=== PATIENT | male | born 1985 | race Caucasian/White ===

== ENCOUNTER 2016-08-25 17:16 | Emergency (ER) | payer OTHER ==
[~2016-08-25] VITALS: Ht 180.3 cm; Wt 88.5 kg
[~2016-08-25 17:16] MED LIST: ACETAMINOPHEN-1 EAC1 PO; ADDERALL XR 3030 MG PO; BACTRIM DS TAB1 EACH PO; BENTYL 10 MG CA10 M1 PO; CARAFATE 1 GM TA1 G1 PO; CITRATE OF MAG296 ML PO; CLEOCIN HCL300 MG PO; COLCHICINE0.6 MG PO; CYMBALTA60 MG PO; ELIMITE60 GM TP; GABAPENTIN 100100 MG PO; HYDROCODONE-AP1 EAC6 PO; HYDROCODONE-APA1 TA1 PO; HYDROCODONE-IB1 EACH PO; HYDROCODONE-IBU1 TAB PO; IBUPROFEN 600600 M1 PO; IBUPROFEN 800800 M1 PO; IBUPROFEN 800800 MG PO; INDOMETHACIN 2525 MG PO; INDOMETHACIN 5050 M1 PO; KETOCONAZOLE60 GM TP; NOHOMEMEDICATIONS; NORCO 5-325 TA1 EAC1 PO; NORCO 5-325 TA1 EACH PO; ONDANSETRON HCL4 M2 PO; OXYCODONE HCL 55 MG PO; OXYCODONE HCL E10 MG PO; OXYCODONE HCL5 M1 PO; PENICILLIN V P500 MG PO; PENICILLIN VK250 MG PO; PENICILLIN VK500 MG PO; PERCOCET 5-3251 EACH PO; PHENERGAN 25 MG25 M1 PO; PHENERGAN 25 MG25 MG PO; PHENERGAN50 MG RC; PRILOSEC 20 MG20 MG PO; PROMETHAZINE12.5 M1 PO; PROTONIX40 M1 PO; PROTONIX40 M2 PO; PROTONIX40 MG PO; ROXICODONE5 M1 PO; SKELAXIN 800 M800 M1 PO; VICOPROFEN 2001 EAC1 PO; VICOPROFEN 2001 EACH PO; WELLBUTRIN 75 M75 M1 PO; ZOFRAN ODT4 MG DISSOLVE; ZOFRAN ODT4 MG PO; ZOFRAN4 MG PO
[2016-08-25 18:33] LABS: ABSOLUTE NEUTROPHILS 3.6 thou/uL (1.4-8.2); BASOPHILS 0.9 % (0.0-2.0); EOSINOPHILS 4.7 % (0.0-3.0); HEMOGLOBIN 14.3 gm/dL (14.0-18.0); LYMPHOCYTES 28.1 % (24.0-44.0); MCH 29.6 pg (26.0-34.0); MCHC 34.1 g/dL (28.0-37.0); MCV 86.7 fL (80.0-100.0); MONOCYTES 10.9 % (1.0-8.0); PLATELET COUNT 234 thou/uL (150-400); POLYS 55.4 % (36.0-66.0); RBC 4.85 mil/uL (4.50-6.00); RDW 14.5 % (10.5-14.5); WBC 6.6 thou/uL (4.0-11.0)
[2016-08-25 18:34] LABS: MANUAL DIFF NO
[2016-08-25] MEDS ORDERED: PROTONIX40 M1 PO (18:36)
[2016-08-25] MEDS ORDERED: ZOFRAN ODT4 MG PO (18:36)
[2016-08-25] MEDS ORDERED: GABAPENTIN 100100 MG PO (18:37)
[2016-08-25] MEDS ORDERED: ADDERALL XR 3030 MG PO (18:37)
[2016-08-25] MEDS ORDERED: CARAFATE 1 GM TA1 G1 PO (18:38)
[2016-08-25 18:40] VITALS: BP 131/70
[2016-08-25 18:42] LABS: CALCIUM 8.7 mg/dL (8.5-10.1); CREATININE 1.2 mg/dL (0.7-1.3); POTASSIUM 3.7 mmol/L (3.5-5.1)
[2016-08-25] MEDS ORDERED: ONDANSETRON HCL4 M2 PO (18:51)
[2016-08-25] MEDS ORDERED: BENTYL 20 MG TA20 M1 PO (18:51)
[2016-08-25] MEDS ORDERED: ANUSOL-HC25 MG RECTAL (18:59)
== END 2016-08-25 19:08 | disposition home or self-care (01) ==
LOC: ER 17:16
PROVIDERS: Physician Assistant
DX: K64.9 Unspecified hemorrhoids (principal); R10.13 Epigastric pain; R11.2 Nausea with vomiting, unspecified; K86.1 Other chronic pancreatitis; F17.210 Nicotine dependence, cigarettes, uncomplicated; Z87.442 Personal history of urinary calculi; Z86.19 Personal history of other infectious and parasitic diseases; Z90.49 Acquired absence of other specified parts of digestive tract; Z88.6 Allergy status to analgesic agent

== ENCOUNTER 2017-03-24 17:15 | Emergency (ER) | payer OTHER ==
[~2017-03-24] VITALS: Ht 180.3 cm; Wt 88.5 kg
[~2017-03-24 17:15] MED LIST changes: +ANUSOL-HC25 MG RECTAL; +BENTYL 20 MG TA20 M1 PO
[2017-03-24] MEDS ORDERED: ADDERALL 30 MG30 MG PO (18:13)
[2017-03-24 18:19] LABS: URINE BILIRUBIN NEGATIVE (Negative); URINE BLOOD NEGATIVE (Negative); URINE COLOR YELLOW; URINE GLUCOSE-RANDOM* NEGATIVE (Negative); URINE KETONES NEGATIVE (Negative); URINE LEUKOCYTES-REFLEX NEGATIVE (Negative); URINE PROTEIN (DIPSTICK) NEGATIVE (Negative); URINE UROBILINOGEN 0.2 E.U./dl (0.2-1.0)
[2017-03-24 18:19] LABS: ABSOLUTE NEUTROPHILS 4.7 thou/uL (1.4-8.2); BASOPHILS 0.9 % (0.0-2.0); EOSINOPHILS 4.9 % (0.0-3.0); HEMATOCRIT 41.4 % (42.0-52.0); HEMOGLOBIN 14.1 gm/dL (14.0-18.0); LYMPHOCYTES 22.9 % (24.0-44.0); MCH 30.3 pg (26.0-34.0); MCHC 34.2 g/dL (28.0-37.0); MCV 88.7 fL (80.0-100.0); PLATELET COUNT 215 thou/uL (150-400); POLYS 64.3 % (36.0-66.0); RBC 4.66 mil/uL (4.50-6.00); WBC 7.3 thou/uL (4.0-11.0)
[2017-03-24 18:20] LABS: MANUAL DIFF NO
[2017-03-24 18:26] LABS: CALCIUM 8.7 mg/dL (8.5-10.1)
[2017-03-24 18:32] LABS: ALBUMIN 3.7 g/dL (3.4-5.0); TOTAL BILIRUBIN 0.2 mg/dL (<0.1-1.0); TOTAL PROTEIN 6.9 g/dL (6.4-8.2)
[2017-03-24 18:49] VITALS: BP 137/94
== END 2017-03-24 18:52 | disposition left against medical advice (07) ==
LOC: ER 17:15
PROVIDERS: Physician Assistant
DX: R10.13 Epigastric pain (principal); F17.210 Nicotine dependence, cigarettes, uncomplicated; Z90.49 Acquired absence of other specified parts of digestive tract; Z87.442 Personal history of urinary calculi; Z88.5 Allergy status to narcotic agent; Z88.8 Allergy status to other drugs, medicaments and biological substances; Z53.21 Procedure and treatment not carried out due to patient leaving prior to being seen by health care provider